=== PATIENT | male | born 1945 | race Caucasian/White ===

== ENCOUNTER 2017-02-06 15:51 | Emergency (ER) | payer OTHER ==
[2017-02-06 15:59] VITALS: TEMP 98.4
--- NOTE | 2017-02-06 16:22 | EDPHY ---
HPI/HX/ROS/PE/MDM Narrative: CHIEF COMPLAINT: Left ankle swelling, shortness of breath. HISTORY OF PRESENT ILLNESS: The patient is a 71-year-old male with a history of hypercholesterolemia and asthma presenting with left ankle swelling and redness that began 5 days ago. He admits associated shortness of breath and fatigue over the same period of time. He now gets short of breath more easily with exertion. The shortness of breath is alleviated by lying down. This feels different than his normal asthma. He has no history of similar symptoms and no blood clot history. He denies calf pain or pain with walking. No fever, chills, chest pain, palpitations, vomiting, diarrhea, urinary complaints, headache, lightheadedness. He did recently take a long driving trip through [place] and [place]. His symptoms began toward the end of the trip. REVIEW OF SYSTEMS: Aside from elements discussed in the HPI, a comprehensive 10-point review of systems was reviewed and is negative. PAST MEDICAL HISTORY: Hypothyroidism, hypercholesterolemia, sleep apnea, depression, asthma. SOCIAL HISTORY: Nonsmoker, lives with his in [facility]. VITAL SIGNS: Reviewed by me GENERAL: Overweight, resting comfortably in no respiratory distress. HEENT: Atraumatic. Eyes: No icterus, no injection. Mouth: moist mucous membranes. No erythema or lesions. Neck: supple with no adenopathy. LUNGS: Clear to auscultation bilaterally, no wheezes, rhonchi or rales. CARDIAC: Regular rate and rhythm, no rubs, murmurs or gallops. ABDOMEN: Soft, nontender, nondistended, bowel sounds normal. BACK: No CVA tenderness. EXTREMITIES: No trauma. No edema. Range of motion is normal throughout. Trace to 1+ edema on left miranda with area of erythema and warmth at the distal miranda. NEURO: Alert and oriented, grossly nonfocal. SKIN: Warm and dry, no rash. PSYCHIATRIC: Normal mentation, no agitation. Portions of this note were transcribed by a medical office professional instructor. I personally performed a history, physical exam, medical decision making, and confirmed accuracy of information the transcribed note. ED Course: 71-year-old male with asthma and hypercholesterolemia presents with left ankle swelling, shortness of breath, and fatigue for the past 5 days. His shortness of breath is exertional in nature and worse than his usual asthma. He has no associated chest pain, fever, or recent sickness. On exam his lungs are clear and heart is regular. Oxygen saturation is 93% on room air. An IV was established and labs ordered. Patient placed on school lunch monitor. EKG and chest x -ray obtained. We will start with a left leg ultrasound. 12-LEAD EKG: Please see the full report in [facility]. My interpretation: Normal sinus rhythm. 1744: Ultrasound results conveyed to me negative by staff radiologist. D-dimer elevated at 1.15. I have ordered a chest CT for the patient. 1839: CTA chest results conveyed to me negative by radiologist. 1914: Reassessed patient. We discussed results of his work up. He and his family report that the sleep apnea machine has accidentally been unplugged from the oxygen source for about 1 week. They believe his generalized fatigue, tiredness, and dyspnea is due to this. They would prefer to follow up with their PCP. Held a long discussion regarding other causes for the patient's dyspnea on exertion including undiagnosed coronary artery disease, congestive failure, valvular problems, pulmonary issues. I offered the patient admission to the hospital for serial troponins, as well as urgent risk stratification. Patient reports he has had a stress test about a year and a half ago. He would prefer to be discharged home on Keflex for her cellulitis and with instructions to uses metered dose inhaler when he develops dyspnea. Family understands that coronary artery disease has not been ruled out 100%. I believe they are appropriate decision makers and I believe they understand the risks and benefit of being discharged. The understand reasons to return to the emergency department and understand the need for close follow-up. I have prescribed Keflex for his cellulitis and Albuterol inhaler. The differential diagnosis for the patient's presenting complaints was considered including but not limited to anemia, pneumonia, coronary artery disease, a arrhythmias, myocardial infarction, pulmonary edema, congestive heart failure, hypertension, and pulmonary embolus. - Data Points Imaging Results: Imaging Impressions Chest X-Ray 02/06/17 16:45 Impression: Perihilar bronchitis without convincing evidence of a new focal infiltrate Extremity Venous Study 02/06/17 16:46 Impression: No evidence of deep vein thrombosis. Findings discussed with Mary Beth Madrid MD 02/06/2017 at 17:39. Chest/Thorax CTA 02/06/17 17:56 Impression: No 1. Pulmonary emboli. 2. Chronic fibrosis, right lower lobe. I telephoned results to Dr. Mary Beth Madrid at 1840 hours. Laboratory Results: Laboratory Results 02/06/17 16:30 02/06/17 16:30 02/06/17 02/06/17 02/06/17 16:30 16:30 16:30 WBC 6.12 10^3/uL 10^3/uL (3.80-9.50) RBC 5.22 10^6/uL 10^6/uL (4.40-6.38) Hgb 15.9 g/dL g/dL (13.7-17.5) Hct 46.3 % % (40.0-51.0) MCV 88.7 fL fL (81.5-99.8) MCH 30.5 pg pg (27.9-34.1) MCHC 34.3 g/dL g/dL (32.4-36.7) RDW 13.5 % % (11.5-15.2) Plt Count 193 10^3/uL 10^3/uL (150-400) MPV 10.4 fL fL (8.7-11.7) Neut % (Auto) 67.2 % % (39.3-74.2) Lymph % (Auto) 22.1 % % (15.0-45.0) [place] % (Auto) 6.5 % % (4.5-13.0) Eos % (Auto) 3.3 % % (0.6-7.6) Baso % (Auto) 0.7 % % (0.3-1.7) Nucleat RBC Rel Count 0.0 % % (0.0-0.2) Absolute Neuts (auto) 4.12 10^3/uL 10^3/uL (1.70-6.50) Absolute Lymphs (auto) 1.35 10^3/uL 10^3/uL (1.00-3.00) Absolute Monos (auto) 0.40 10^3/uL 10^3/uL (0.30-0.80) Absolute Eos (auto) 0.20 10^3/uL 10^3/uL (0.03-0.40) Absolute Basos (auto) 0.04 10^3/uL 10^3/uL (0.02-0.10) Absolute Nucleated RBC 0.00 10^3/uL 10^3/uL (0-0.01) Immature Gran % 0.2 % % (0.0-1.1) Immature Gran # 0.01 10^3/uL 10^3/uL (0.00-0.10) PT 14.0 SEC SEC (12.0-15.0) INR 1.09 (0.83-1.16) D-Dimer 1.15 ug/mLFEU H ug/mLFEU (0.00-0.50) Sodium 138 mEq/L mEq/L (134-144) Potassium 4.5 mEq/L mEq/L (3.5-5.2) Chloride 105 mEq/L mEq/L (97-110) Carbon Dioxide 23 mEq/l mEq/l (22-31) Anion Gap 10 mEq/L mEq/L (8-16) BUN 19 mg/dL mg/dL (7-23) Creatinine 1.1 mg/dL mg/dL (0.7-1.3) Estimated GFR > 60 Glucose 102 mg/dL H mg/dL (70-100) Calcium 9.5 mg/dL mg/dL (8.5-10.4) Troponin I < 0.012 ng/mL ng/mL (0-0.034) NT-Pro-B Natriuret Pep 46 pg/mL pg/mL (0-125) Medications Given: Discontinued Medications Cephalexin (Keflex 500 Mg Prepack#4) 1 btl TAKEHOME EDNOW ONE PRN Reason: Protocol Stop: 02/06/17 19:55 Last Admin: 02/06/17 19:50 Dose: 1 btl General Time Seen by Provider: 02/06/17 16:16 Initial Vital Signs: Initial Vital Signs Temperature (C) 36.9 C 02/06/17 15:54 Heart Rate 106 H 02/06/17 15:54 Respiratory Rate 18 02/06/17 15:54 Blood Pressure 133/82 H 02/06/17 15:54 O2 Sat (%) 95 02/06/17 15:54 O2 Delivery Mode Room Air Allergies/Adverse Reactions: No Known Allergies Allergy (Verified 02/06/17 15:59) Home Medications: Medication Instructions Recorded Aspirin 11/09/10 Levothyroxine 11/09/10 Paxil 11/09/10 SIMVASTATIN 11/09/10 Wellbutrin 11/09/10 Cephalexin [Keflex (RX)] 500 mg PO QID 6 Days 02/06/17 Cephalexin [Keflex] 500 mg PO Q6H #28 cap 02/06/17 Departure - Departure Disposition: [facility] Inpatient Acute Clinical Impression: Exertional dyspnea Cellulitis Qualifiers: Site of cellulitis: extremity Site of cellulitis of extremity: lower extremity Laterality: left Qualified Code(s): L03.116 - Cellulitis of left lower limb Condition: Fair Instructions: Cephalexin (By mouth), Cellulitis (ED), Dyspnea (ED) Additional Instructions: Take Keflex as prescribed. Call your PCP tomorrow to set up a follow up appointment. Use the Albuterol inhaler as instructed when needed for shortness of breath. Return to the ER for any serious worsening of condition. Referrals: Marilin Lozano PA [Primary Care Provider] - As per Instructions Prescriptions: Cephalexin [Keflex (RX)] 500 mg PO QID 6 Days Cephalexin [Keflex] 500 mg PO Q6H #28 cap Report Scribed for: Mary Beth Madrid Report Scribed by: Manuel Soto Date of Report: 02/06/17 Time of Report: 16:35
--- NOTE | 2017-02-06 16:37 | CPEKG ---
Heart Rate: 91 RR Interval: 659 P-R Interval: 152 QRSD Interval: 82 QT Interval: 340 QTC Interval: 419 P [place]: 55 QRS [place]: 37 T Wave [place]: 6 EKG Severity - NORMAL ECG - EKG Impression: SINUS RHYTHM Electronically Signed By: Mary Beth Madrid 06-Feb-2017 21:41:10
[2017-02-06 16:50] LABS: % IMMATURE GRANULYOCYTES 0.2 % (0.0-1.1); ABSOLUTE IMMATURE GRANULOCYTES 0.01 10^3/uL (0.00-0.10); ADD DIFF? NO; ADD MORPH? NO; ADD SCAN? NO; ATYPICAL LYMPHOCYTE FLAG 10 (0-99); FRAGMENT RBC FLAG 0 (0-99); HEMATOCRIT 46.3 % (40.0-51.0); HEMOGLOBIN 15.9 g/dL (13.7-17.5); LEFT SHIFT FLG 0 (0-99); LIPEMIA HEMOLYSIS FLAG 90 (0-99); MEAN CELL HEMOGLOBIN 30.5 pg (27.9-34.1); MEAN CELL HEMOGLOBIN CONCENTR. 34.3 g/dL (32.4-36.7); MEAN CELL VOLUME 88.7 fL (81.5-99.8); MEAN PLATELET VOLUME 10.4 fL (8.7-11.7); PLATELET CLUMPS FLAG 30 (0-99); PLATELET COUNT 193 10^3/uL (150-400); RED BLOOD CELL COUNT 5.22 10^6/uL (4.40-6.38); RED CELL DISTRIBUTION WIDTH 13.5 % (11.5-15.2)
[2017-02-06 16:58] LABS: ANION GAP 10 mEq/L (8-16); CALCIUM 9.5 mg/dL (8.5-10.4); CARBON DIOXIDE 23 mEq/l (22-31); CHLORIDE 105 mEq/L (97-110); CREATININE 1.1 mg/dL (0.7-1.3); GLOMERULAR FILTRATION RATE > 60; GLUCOSE 102 mg/dL (70-100); INR 1.09 (0.83-1.16); POTASSIUM 4.5 mEq/L (3.5-5.2); SODIUM 138 mEq/L (134-144)
[2017-02-06 17:10] LABS: TROPONIN I < 0.012 ng/mL (0-0.034)
[2017-02-06] MEDS ORDERED: IOPAMIDOL (ISOVUE 370) 100 ML BTL IV ONE (18:05)
[2017-02-06 19:07] VITALS: O2SAT 92
[2017-02-06 19:39] VITALS: BP 130/75; PULSE 89; RESP 18
[2017-02-06] MEDS ORDERED: CEPHALEXIN 500MG PREPACK#4 BTL TAKEHOME ONE ×2 (19:51→19:54)
== END 2017-02-06 19:56 | disposition still patient (30) ==
LOC: UNDOADMOB 18:58
DX: R06.09 Other forms of dyspnea (principal); L03.116 Cellulitis of left lower limb; J45.909 Unspecified asthma, uncomplicated; Z79.82 Long term (current) use of aspirin
CPT/HCPCS: 71020; 71275; 93005; 93971; 99285; Q9967

== ENCOUNTER → 2017-07-26 | Outpatient (CLI) | payer OTHER | LOC: FIMAGING 13:34 | PROVIDERS: ATTEND Internal Medicine | DX: M79.661 Pain in right lower leg (principal); R22.41 Localized swelling, mass and lump, right lower limb ==

== ENCOUNTER 2017-10-22 11:25 | Emergency (ER) | payer OTHER ==
--- NOTE | 2017-10-22 13:42 | EDPHY ---
H & P Stated Complaint: URI sxs x 4 days;started Zpack yesterday;also tx'd for pinkeye Source: Patient, Family () Exam Limitations: No limitations - Personal History Current Tetanus Diphtheria and Acellular Pertussis (TDAP): Yes - Medical/Surgical History Hx Asthma: Yes Hx Chronic Respiratory Disease: Yes Hx Diabetes: No Hx Cardiac Disease: Yes Hx Renal Disease: No Hx Cirrhosis: No Hx Alcoholism: No Hx HIV/AIDS: No Hx Splenectomy or Spleen Trauma: No Other PMH: HYPOTHYROID, high chol. VANESSA- oxygen and cpap at night, depression, asthma. - Social History Smoking Status: Never smoked Time Seen by Provider: 10/22/17 13:41 HPI/ROS: HPI: This is a 72-year-old male presents with Chief Complaint: URI sxs x 4 days;started Zpack yesterday;also tx'd for pinkeye Location: Chest Quality: Cough Duration: 4 days Signs and Symptoms:+ low-grade fever, + dyspnea, + no chest pain, + fatigue, + lightheadedness, + bilateral eye redness Timing: Constant Severity: Moderate Context: Patient has a history of VANESSA wear CPAP at night and oxygen, asthma presents with complaints of 4 day history of sinus congestion, fatigue, nonproductive dry hacking cough and bilateral eye redness. He has a close friend that is a physician and prescribed tobramycin dexamethasone ocular drops as well as azithromycin. He is on day 2 azithromycin with no improvement. He denies lower extremity edema/wheezing/neck stiffness/headache/chest pain. reports that he has a history of bronchitis. Does not regularly use inhalers. Denies history of congestive heart failure. No recent long distance travel. Modifying Factors: See above Comment: ROS: see HPI Constitutional: No fever, no chills, no weight loss Eyes: No blurred vision Respiratory: No shortness of breath, no cough Cardiovascular: No chest pain Gastrointestinal: No nausea, no vomiting, no diarrhea Genitourinary: No dysuria Extremities: No myalgias Neurologic: No weakness, no numbness Skin: No rashes Hematologic: No bruising, no bleeding MEDICAL/SURGICAL/SOCIAL HISTORY: Medical history: HYPOTHYROID, high chol. VANESSA- oxygen and cpap at night, depression, asthma. Surgical history: Denies Social history: . CONSTITUTIONAL: Overweight elderly white male, awake and alert, no obvious distress HEENT: Atraumatic and normocephalic, PERRL, EOMI. Tympanic membranes clear. Oropharynx clear, no exudate and moist pink mucosa. Airway patent. No lymphadenopathy. No meningismus. No JVD. Cardiovascular: Normal S1/S2, regular rate, regular rhythm, without murmur rub or gallop. PULMONARY/CHEST: Symmetrical and nontender. Clear to auscultation bilaterally. Good air movement. No accessory muscle usage. ABDOMEN: Soft, nondistended, nontender, no rebound, no guarding, no peritoneal signs, no masses or organomegaly. No CVAT. EXTREMITIES: 2/2 pulses, strength 5/5, no deformities, no clubbing, no cyanosis or edema. NEUROLOGICAL: no focal neuro deficits. GCS 15. SKIN: Warm and dry, no erythema. no rash. Good capillary refill. (Jody Russo) Constitutional: Initial Vital Signs Temperature (C) 37.2 C 10/22/17 11:35 Heart Rate 100 10/22/17 11:35 Respiratory Rate 18 10/22/17 11:35 Blood Pressure 142/80 H 10/22/17 11:35 O2 Sat (%) 93 10/22/17 11:35 O2 Delivery Mode Room Air Allergies/Adverse Reactions: No Known Allergies Allergy (Verified 10/22/17 11:41) Home Medications: Medication Instructions Recorded Aspirin 11/09/10 Levothyroxine 11/09/10 Paxil 11/09/10 SIMVASTATIN 11/09/10 Wellbutrin 11/09/10 Benzonatate [Tessalon Pearles (RX)] 100 mg PO Q6 PRN #15 cap 10/22/17 Zpack 10/22/17 predniSONE 50 mg PO DAILY #5 tablet 10/22/17 Medical Decision Making - Diagnostics EKG Interpretation: 12 lead EKG: Indication: Dyspnea Rhythm: Normal sinus rhythm, rate 80 beats per minute [place]: Normal Intervals: Normal QRS: Normal ST segments: Nonspecific changes T-waves: Nonspecific changes INTERPRETATION: No acute ischemic changes The 12 lead EKG was interpreted by myself and with attending. (Jody Russo) ED Course/Re-evaluation: Labs, blood culture, chest x-ray, EKG, IV and oral medications ordered O2 saturation 97-99% on room air upon arrival. Given ibuprofen and Tessalon Perles Chest x-ray my read shows no focal opacity, effusion, pneumothorax, widened mediastinum. Radiology questions mild CHF. 1445: D-dimer elevated; CTA chest ordered No signs of pulmonary embolism/pneumonia/pneumothorax/pleural effusion/ arrhythmia/coronary syndrome/congestive heart failure Given p.o. prednisone 60 mg Appears to be viral bronchitis will have patient continue Zithromax until course descended Reassessed patient who notes improvement in cough This patient was seen under the supervision of my secondary supervising physician. I evaluated care for this patient independently. Discussed this patient with Dr. Madrid who did not see the patient. (Jody Russo) Differential Diagnosis: Shortness of breath including but not limited to pulmonary infectious process, COPD, asthma, pulmonary embolus and congestive heart failure. (Jody Russo) Other Provider: The patient was evaluated and managed by the Physician Logistics Associate. I discussed the patient's presentation and course with the midlevel provider with them and agree with the evaluation. My co-signature indicates that I have reviewed this chart and I agree with the findings and plan of care as documented. I am the secondary supervising physician. 72-year-old male presenting with 4 days of cough and shortness of breath. Evaluation the emergency department included chest x-ray showing no focal infiltrate, CT scan of the chest revealing no pulmonary embolism, EKG which was normal sinus rhythm, troponin which was negative BMP which was negative. Patient 's vital signs were stable with no hypoxemia or tachypnea. Patient advised to continue azithromycin. Provided with cough suppressant as well. Close follow-up recommended. Push fluids. (Mary Beth Madrid) - Data Points Laboratory Results: Laboratory Results 10/22/17 14:00 10/22/17 14:00 Medications Given: Discontinued Medications Benzonatate (Tessalon Pearles) 200 mg PO EDNOW ONE Stop: 10/22/17 13:47 Last Admin: 10/22/17 14:02 Dose: 200 mg Ibuprofen (Motrin) 600 mg PO EDNOW ONE Stop: 10/22/17 13:47 Last Admin: 10/22/17 14:02 Dose: 600 mg Prednisone (Prednisone) 60 mg PO EDNOW ONE Stop: 10/22/17 16:02 Last Admin: 10/22/17 16:14 Dose: 60 mg Departure - Departure Disposition: Home, Routine, Self-Care Clinical Impression: Bronchitis Condition: Good Instructions: Acute Bronchitis (ED) Additional Instructions: Please complete azithromycin and eyedrops per primary care provider. Start prednisone course and use Tessalon Perles as needed for cough. Referrals: Zahra Santana MD [Primary Care Provider] - As per Instructions Prescriptions: Benzonatate [Tessalon Pearles (RX)] 100 mg PO Q6 PRN #15 cap PRN Reason: Cough, Severe predniSONE 50 mg PO DAILY #5 tablet
[2017-10-22] MEDS ORDERED: BENZONATATE 100 MG CAP PO ONE (13:46)
[2017-10-22] MEDS ORDERED: IBUPROFEN 600 MG TAB PO ONE (13:46)
--- NOTE | 2017-10-22 14:07 | CPEKG ---
Heart Rate: 80 RR Interval: 750 P-R Interval: 148 QRSD Interval: 80 QT Interval: 352 QTC Interval: 406 P [place]: 66 QRS [place]: 22 T Wave [place]: 23 EKG Severity - NORMAL ECG - EKG Impression: SINUS RHYTHM Electronically Signed By: Zaida Rudolph 22-Oct-2017 21:20:58
[2017-10-22 14:27] LABS: PLATELET COUNT 215 10^3/uL (150-400)
[2017-10-22 15:25] VITALS: RESP 16
[2017-10-22] MEDS ORDERED: predniSONE 20 MG TAB PO ONE (16:01)
[2017-10-22 16:41] VITALS: BP 127/62; PULSE 90; TEMP 99.3; O2SAT 92
== END 2017-10-22 16:38 | disposition home or self-care (01) ==
DX: J40 Bronchitis, not specified as acute or chronic (principal); J45.909 Unspecified asthma, uncomplicated; Z79.899 Other long term (current) drug therapy

== ENCOUNTER 2018-07-30 21:56 | Emergency (ER) | payer OTHER ==
[2018-07-30] MEDS ORDERED: NS 1,000 ML IV ONE (22:05)
--- NOTE | 2018-07-30 22:06 | EDPHY ---
H & P Stated Complaint: UTI symptoms, fever, chills Time Seen by Provider: 07/30/18 22:05 HPI/ROS: HPI CHIEF COMPLAINT: Possible urinary tract infection HISTORY OF PRESENT ILLNESS: 73-year-old male, history of urinary tract infection, presents emergency room stating he is not feeling well this evening. And that he had rigors. States this evening he started feeling ill like he had a flu-like illness. And then developed shakes and rigors. Denies any chest pain or shortness of breath, denies productive cough. Denies abdominal pain. T-max at home was 99. Does state he had some discomfort urinating. He recently saw Urology Dr. Alfred, and had a cystoscopy performed last Monday. He denies flank pain or back pain. Denies abdominal pain. Denies vomiting. The cystoscopy was performed very evaluation of urinary tract infection. Past Medical History: Past medical history significant for depression, anxiety , obstructive sleep apnea on nighttime oxygen Past Surgical History: Cystoscopy last Monday. Social History: Denies drugs alcohol tobacco. Family History: Resides locally. ROS REVIEW OF SYSTEMS: 10 Systems were reviewed and negative with the exception of the elements mentioned in the history of present illness. Exam Constitutional nontoxic triage nursing summary reviewed, vital signs reviewed, awake/alert. Vital signs stable at triage. Noted T-max 37.9 degrees. Eyes normal conjunctivae and sclera, EOMI, PERRLA. HENT normal inspection, atraumatic, moist mucus membranes, no epistaxis, neck supple/ no meningismus, no raccoon eyes. Respiratory clear to auscultation bilaterally, normal breath sounds, no respiratory distress, no wheezing. Cardiovascular rate normal, regular rhythm, no murmur, no edema, distal pulses normal. Gastrointestinal soft, non-tender, no rebound, no guarding, normal bowel sounds, no distension, no pulsatile mass. Genitourinary no CVA tenderness. Musculoskeletal no midline vertebral tenderness, full range of motion, no calf swelling, no tenderness of extremities, no meningismus, good pulses, neurovascularly intact. Skin pink, warm, & dry, no rash, skin atraumatic. Neurologic awake, alert and oriented x 3, AAOx3, moves all 4 extremities equally, motor intact, sensory intact, CN II-XII intact, normal cerebellar, normal vision, normal speech. Psychiatric normal mood/affect. Heme/Lymph/Immune no lymphadenopathy. Differential Diagnosis: Includes but is not limited to in a particular order, UTI, cystitis, pyelonephritis, prostatitis, sepsis, bacteremia Medical Decision Making: Plan for this patient IV establishment with fluid bolus 1 L normal saline, check basic blood work CBC, lactic acid, blood cultures , urinalysis. Re-evaluate. Re-evaluation: 1237: Patient re-evaluated this time. Vital signs are stable. Patient is afebrile here. Blood work is reassuring with no elevated white blood cell count. He has not had a fever here. He is feeling better after IV fluids. I have sent urine culture and blood cultures. Patient's urinalysis does show small amount of urinary tract infection. Given his recent instrumentation I did provide him 1 g Rocephin here in emergency room Patient be given Keflex for home. I recommend he drinks lots of fluids stays well hydrated. Additionally should return emergency room if develops worsening abdominal pain, fever, vomiting. Complete antibiotic course. Return if worse. The patient is eager to be discharged home. at bedside as well. Source: Patient - Personal History Current Tetanus/Diphtheria Vaccine: Unsure - Medical/Surgical History Hx Asthma: Yes Hx Chronic Respiratory Disease: Yes Hx Diabetes: No Hx Cardiac Disease: Yes Hx Renal Disease: No Hx Cirrhosis: No Hx Alcoholism: No Hx HIV/AIDS: No Hx Splenectomy or Spleen Trauma: No Other PMH: HYPOTHYROID, high chol. VANESSA- oxygen and cpap at night, depression, asthma. - Social History Smoking Status: Never smoked Constitutional: Initial Vital Signs Temperature (C) 37.9 C 07/30/18 21:59 Heart Rate 95 07/30/18 21:59 Respiratory Rate 16 07/30/18 21:59 Blood Pressure 132/82 H 07/30/18 21:59 O2 Sat (%) 96 07/30/18 21:59 O2 Delivery Mode Room Air Allergies/Adverse Reactions: No Known Allergies Allergy (Verified 07/30/18 22:02) Home Medications: Medication Instructions Recorded Aspirin 11/09/10 Levothyroxine 11/09/10 Paxil 11/09/10 SIMVASTATIN 11/09/10 Wellbutrin 11/09/10 Cephalexin [Keflex] 500 mg PO Q6H #28 cap 07/30/18 Medical Decision Making - Data Points Laboratory Results: Laboratory Results 07/30/18 22:15 07/30/18 22:15 07/30/18 07/30/18 07/30/18 23:00 22:15 22:15 WBC 8.20 10^3/uL 10^3/uL (3.80-9.50) RBC 5.09 10^6/uL 10^6/uL (4.40-6.38) Hgb 15.7 g/dL g/dL (13.7-17.5) Hct 45.6 % % (40.0-51.0) MCV 89.6 fL fL (81.5-99.8) MCH 30.8 pg pg (27.9-34.1) MCHC 34.4 g/dL g/dL (32.4-36.7) RDW 13.5 % % (11.5-15.2) Plt Count 173 10^3/uL 10^3/uL (150-400) MPV 10.2 fL fL (8.7-11.7) Neut % (Auto) 82.3 % H % (39.3-74.2) Lymph % (Auto) 9.9 % L % (15.0-45.0) [place] % (Auto) 5.9 % % (4.5-13.0) Eos % (Auto) 1.3 % % (0.6-7.6) Baso % (Auto) 0.4 % % (0.3-1.7) Nucleat RBC Rel Count 0.0 % % (0.0-0.2) Absolute Neuts (auto) 6.75 10^3/uL H 10^3/uL (1.70-6.50) Absolute Lymphs (auto) 0.81 10^3/uL L 10^3/uL (1.00-3.00) Absolute Monos (auto) 0.48 10^3/uL 10^3/uL (0.30-0.80) Absolute Eos (auto) 0.11 10^3/uL 10^3/uL (0.03-0.40) Absolute Basos (auto) 0.03 10^3/uL 10^3/uL (0.02-0.10) Absolute Nucleated RBC 0.00 10^3/uL 10^3/uL (0-0.01) Immature Gran % 0.2 % % (0.0-1.1) Immature Gran # 0.02 10^3/uL 10^3/uL (0.00-0.10) VBG Lactic Acid Sodium 136 mEq/L mEq/L (135-145) Potassium 4.4 mEq/L mEq/L (3.3-5.0) Chloride 101 mEq/L mEq/L (97-110) Carbon Dioxide 27 mEq/l mEq/l (22-31) Anion Gap 8 mEq/L mEq/L (8-16) BUN 21 mg/dL mg/dL (7-23) Creatinine 1.1 mg/dL mg/dL (0.7-1.3) Estimated GFR > 60 Glucose 96 mg/dL mg/dL (70-100) Calcium 9.0 mg/dL mg/dL (8.5-10.4) Urine Color YELLOW Urine Appearance CLEAR Urine pH 5.0 (5.0-7.5) Ur Specific [place] 1.016 (1.002-1.030) Urine Protein NEGATIVE (NEGATIVE) Urine Ketones NEGATIVE (NEGATIVE) Urine Blood 1+ H (NEGATIVE) Urine Nitrate NEGATIVE (NEGATIVE) Urine Bilirubin NEGATIVE (NEGATIVE) Urine Urobilinogen NEGATIVE EU EU (0.2-1.0) Ur Leukocyte Esterase TRACE H (NEGATIVE) Urine RBC 5-10 /hpf H /hpf (0-3) Urine WBC 1-3 /hpf /hpf (0-3) Ur Epithelial Cells NONE SEEN /lpf /lpf (NONE-1+) Urine Mucus TRACE /lpf /lpf (NONE-1+) Urine Glucose NEGATIVE (NEGATIVE) 07/30/18 22:15 WBC RBC Hgb Hct MCV MCH MCHC RDW Plt Count MPV Neut % (Auto) Lymph % (Auto) [place] % (Auto) Eos % (Auto) Baso % (Auto) Nucleat RBC Rel Count Absolute Neuts (auto) Absolute Lymphs (auto) Absolute Monos (auto) Absolute Eos (auto) Absolute Basos (auto) Absolute Nucleated RBC Immature Gran % Immature Gran # VBG Lactic Acid 1.8 mmol/L mmol/L (0.7-2.1) Sodium Potassium Chloride Carbon Dioxide Anion Gap BUN Creatinine Estimated GFR Glucose Calcium Urine Color Urine Appearance Urine pH Ur Specific [place] Urine Protein Urine Ketones Urine Blood Urine Nitrate Urine Bilirubin Urine Urobilinogen Ur Leukocyte Esterase Urine RBC Urine WBC Ur Epithelial Cells Urine Mucus Urine Glucose Medications Given: Discontinued Medications Acetaminophen (Tylenol) 1,000 mg PO EDNOW ONE Stop: 07/30/18 23:18 Last Admin: 07/30/18 23:18 Dose: 1,000 mg Sodium Chloride (Ns) 1,000 mls @ 0 mls/hr IV EDNOW ONE; Wide Open PRN Reason: Protocol Stop: 07/30/18 22:06 Last Admin: 07/30/18 22:12 Dose: 1,000 mls Ceftriaxone Sodium/Dextrose (Rocephin 1 Gm (Premix)) 50 mls @ 100 mls/hr IV EDNOW ONE PRN Reason: Protocol Stop: 07/30/18 23:50 Last Admin: 07/30/18 23:40 Dose: 50 mls Departure - Departure Disposition: Home, Routine, Self-Care Clinical Impression: Urinary tract infection Qualifiers: Urinary tract infection type: acute cystitis Hematuria presence: with hematuria Qualified Code(s): N30.01 - Acute cystitis with hematuria Condition: Good Instructions: Urinary Tract Infection in Men (ED) Additional Instructions: 1. Drink lots of fluids stay well-hydrated 2. Antibiotics as prescribed 3. Return if worsening fever, vomiting, not feeling well. Referrals: Zahra Santana MD [Primary Care Provider] - As per Instructions Alex Alfred MD [Medical Doctor] - As per Instructions Prescriptions: Cephalexin [Keflex] 500 mg PO Q6H #28 cap
[2018-07-30 22:36] LABS: PLATELET COUNT 173 10^3/uL (150-400)
[2018-07-30] MEDS ORDERED: ACETAMINOPHEN 500 MG TAB ONE (23:15)
[2018-07-30] MEDS ORDERED: ACETAMINOPHEN 500 MG TAB PO ONE (23:17)
[2018-07-30 23:44] VITALS: BP 159/88
[2018-07-31] MEDS ORDERED: KETOROLAC 15 MG/1 ML SDV IVP ONE (00:34)
== END 2018-07-31 00:53 | disposition home or self-care (01) ==
DX: N39.0 Urinary tract infection, site not specified (principal); E86.9 Volume depletion, unspecified
CPT/HCPCS: 96361; 96365; 96375; 99284; J0696; J1885

== ENCOUNTER → 2018-08-03 | Outpatient (CLI) | payer OTHER | LOC: FIMAGING 10:30 | PROVIDERS: ATTEND Specialist | DX: N20.0 Calculus of kidney (principal); N28.1 Cyst of kidney, acquired; N42.89 Other specified disorders of prostate; N32.3 Diverticulum of bladder ==

== ENCOUNTER → 2018-09-13 | Outpatient (CLI) | payer OTHER | LOC: FIMAGING 12:09 | PROVIDERS: ATTEND Internal Medicine Pulmonary Disease | DX: J44.9 Chronic obstructive pulmonary disease, unspecified (principal) ==

== ENCOUNTER → 2018-10-22 | Outpatient (CLI) | payer OTHER | LOC: BHFA 10:00 | PROVIDERS: ATTEND Internal Medicine Cardiovascular Disease | DX: R06.00 Dyspnea, unspecified (principal) ==

== ENCOUNTER 2019-02-03 09:57 | Emergency (ER) | payer OTHER ==
--- NOTE | 2019-02-03 10:10 | EDPHY ---
HPI/HX/ROS/PE/MDM Narrative: CHIEF COMPLAINT: Cough and cold symptoms, fatigue HPI: This patient is a 73-year-old male with history of asthma, obstructive sleep apnea, hyperlipidemia, and hypothyroidism. He presents complaining of cough and cold symptoms, stating "every year I get a bad could that goes down into my lungs and this feels like that". His current symptoms have been ongoing for two weeks. He complains of difficulty breathing and persistent cough that is making it hard for him to sleep. He notes has developed conjunctivitis symptoms in the last day as well. He does not feel febrile and has not taken his temperature. He endorses productive cough with yellow sputum. He did receive a flu shot this year. He denies any cardiac history. He denies any chest pain, vomiting, diarrhea, or other associated symptoms. No new swelling. REVIEW OF SYSTEMS: A comprehensive 10 system review of systems is otherwise negative aside from elements mentioned in the history of present illness and medical decision making. PMH: Asthma. Hypothyroid. Hyperlipidemia. VANESSA, uses CPAP at night. SOCIAL HISTORY: PHYSICAL EXAM: General:Patient is alert, in no acute distress. ENT:Bilateral conjunctivitis with mild yellow discharge noted. ENT inspection otherwise normal. Neck: Normal inspection. Full range of motion. Respiratory:No respiratory distress. Breath sounds normal bilaterally. Cardiovascular: Regular rate and rhythm. Strong peripheral pulses. Normal cap refill. Abdomen:The abdomen is nontender to palpation. There are no peritoneal signs. There are normal bowel sounds. Back: Normal to inspection. No tenderness to palpation. Skin: Normal color. No rash. Warm and dry. Extremities: Normal appearance. Full range of motion. Neuro: Oriented x3. Normal motor function. Normal sensory function. ED Course: 73-year-old male with history including asthma, obstructive sleep apnea, hyperlipidemia, and hypothyroidism who presents complaining of cough and cold symptoms ongoing for two weeks. He additionally has bilateral conjunctivitis. Plan for EKG, chest x-ray, labs including CBC, chemistries, POC troponin, flu swab. EKG was ordered and interpreted by myself. Please see [employer] system for official reading. Reviewed chest x-ray. This is consistent with COPD. No focal pneumonia. Reviewed laboratory studies. These are largely unremarkable. Flu A/B and RSV negative. Reassessed patient. Discussed imaging and laboratory studies. He has passed a road test at 92% SpO2 on room air. Patient is feeling better and would like to go home. Plan to discharge home in good condition. He understands to follow up with his primary care provider tomorrow without fail. Prescriptions for azithromycin, ofloxacin, prednisone, albuterol HFA, and Tessalon pearles provided for symptom relief. Follow up and return precautions discussed. The patient is comfortable with this plan. MDM: This patient presents with what appears to be a COPD exacerbation. Workup is negative for signs of PNA, hypoxemia, sepsis, ACS. There are no symptoms to suggest PE. We discussed options for care including admission to the hospital for observation, and he would like to go home. I will treat him with azithromycin and steroid burst. I note an outpatient lab ordered by his PCP which indicates his thyroid supplementation is likely too low. The patient will follow-up with his PCP tomorrow to address this. I see no signs of hypothyroid emergency at this time, and I do not think his current symptoms are related to this. His bilateral conjunctivitis certainly suggests a viral process. - Data Points Imaging Results: Imaging Impressions Chest X-Ray 02/03/19 10:18 Impression: 1. Mild cardiac silhouette enlargement. 2. Peribronchial thickening, with no focal infiltrate. 3. Small nodular opacity at the right lung base, not appreciated on previous CT imaging of the chest in 2017 (although there was some parenchymal fibrosis and/ or subsegmental atelectasis at that time). A repeat study with nipple markers is suggested. Findings were discussed with Nimesh Rosenthal MD at 11:31, on 02/03/2019. Chest X-Ray 02/03/19 11:33 Impression: The nodule at the right lung base corresponds to the patient's nipple. Imaging: I viewed and interpreted images myself Laboratory Results: Laboratory Results 02/03/19 10:30 02/03/19 10:30 02/03/19 02/03/19 02/03/19 10:30 10:30 10:30 WBC 8.12 10^3/uL 10^3/uL (3.80-9.50) RBC 5.23 10^6/uL 10^6/uL (4.40-6.38) Hgb 16.0 g/dL g/dL (13.7-17.5) Hct 46.6 % % (40.0-51.0) MCV 89.1 fL fL (81.5-99.8) MCH 30.6 pg pg (27.9-34.1) MCHC 34.3 g/dL g/dL (32.4-36.7) RDW 13.8 % % (11.5-15.2) Plt Count 208 10^3/uL 10^3/uL (150-400) MPV 10.1 fL fL (8.7-11.7) Neut % (Auto) 76.2 % H % (39.3-74.2) Lymph % (Auto) 12.3 % L % (15.0-45.0) [place] % (Auto) 8.9 % % (4.5-13.0) Eos % (Auto) 1.8 % % (0.6-7.6) Baso % (Auto) 0.6 % % (0.3-1.7) Nucleat RBC Rel Count 0.0 % % (0.0-0.2) Absolute Neuts (auto) 6.18 10^3/uL 10^3/uL (1.70-6.50) Absolute Lymphs (auto) 1.00 10^3/uL 10^3/uL (1.00-3.00) Absolute Monos (auto) 0.72 10^3/uL 10^3/uL (0.30-0.80) Absolute Eos (auto) 0.15 10^3/uL 10^3/uL (0.03-0.40) Absolute Basos (auto) 0.05 10^3/uL 10^3/uL (0.02-0.10) Absolute Nucleated RBC 0.00 10^3/uL 10^3/uL (0-0.01) Immature Gran % 0.2 % % (0.0-1.1) Immature Gran # 0.02 10^3/uL 10^3/uL (0.00-0.10) Sodium 138 mEq/L mEq/L (135-145) Potassium 4.7 mEq/L mEq/L (3.5-5.2) Chloride 103 mEq/L mEq/L (97-110) Carbon Dioxide 23 mEq/l mEq/l (22-31) Anion Gap 12 mEq/L mEq/L (6-14) BUN 20 mg/dL mg/dL (7-23) Creatinine 1.2 mg/dL mg/dL (0.7-1.3) Estimated GFR 59 Glucose 106 mg/dL H mg/dL (70-100) Calcium 9.4 mg/dL mg/dL (8.5-10.4) POC Troponin I 0.01 ng/mL ng/mL (0.00-0.08) Nasal Influenza A PCR Nasal Influenza B PCR RSV (PCR) 02/03/19 10:10 WBC RBC Hgb Hct MCV MCH MCHC RDW Plt Count MPV Neut % (Auto) Lymph % (Auto) [place] % (Auto) Eos % (Auto) Baso % (Auto) Nucleat RBC Rel Count Absolute Neuts (auto) Absolute Lymphs (auto) Absolute Monos (auto) Absolute Eos (auto) Absolute Basos (auto) Absolute Nucleated RBC Immature Gran % Immature Gran # Sodium Potassium Chloride Carbon Dioxide Anion Gap BUN Creatinine Estimated GFR Glucose Calcium POC Troponin I Nasal Influenza A PCR NEGATIVE FOR FLU A (NEGATIVE) Nasal Influenza B PCR NEGATIVE FOR FLU B (NEGATIVE) RSV (PCR) NEGATIVE FOR RSV (NEGATIVE) Medications Given: Discontinued Medications Sodium Chloride (Ns) 500 mls @ 0 mls/hr IV EDNOW ONE; Wide Open PRN Reason: Protocol Stop: 02/03/19 10:19 Last Admin: 02/03/19 10:29 Dose: 500 mls Point of Care Test Results: Chemistry 02/03/19 10:30 POC Troponin I 0.01 ng/mL ng/mL (0.00-0.08) General Time Seen by Provider: 02/03/19 10:02 Initial Vital Signs: Initial Vital Signs Temperature (C) 37.3 C 02/03/19 10:02 Heart Rate 92 02/03/19 10:02 Respiratory Rate 18 02/03/19 10:02 Blood Pressure 108/74 02/03/19 10:02 O2 Sat (%) 94 02/03/19 10:02 O2 Delivery Mode Room Air O2 (L/minute) 2 Allergies/Adverse Reactions: No Known Allergies Allergy (Verified 02/03/19 10:01) Home Medications: Medication Instructions Recorded Aspirin 11/09/10 Levothyroxine 11/09/10 Paxil 11/09/10 SIMVASTATIN 11/09/10 Wellbutrin 11/09/10 Albuterol [Proventil Inhaler HFA 1 - 2 puffs IH Q4PRN PRN #1 mdi 02/03/19 (*)] Azithromycin [Zithromax] 250 mg PO DAILY #6 tab 02/03/19 Benzonatate [Tessalon Pearles (RX)] 100 mg PO TID PRN #15 cap 02/03/19 Brio Ellipta 02/03/19 Ofloxacin 0.3% [Ocuflox 0.3%] 1 drops OP QID 7 Days opht.btl 02/03/19 predniSONE 60 mg PO DAILY 5 Days tab 02/03/19 Departure - Departure Disposition: Home, Routine, Self-Care Clinical Impression: Chronic obstructive pulmonary disease with acute exacerbation, Bilateral conjunctivitis Condition: Good Instructions: Azithromycin (By mouth), Ofloxacin (Into the eye), COPD (Chronic Obstructive Pulmonary Disease) (ED), Conjunctivitis (ED) Additional Instructions: Follow up with your primary care provider tomorrow without fail. Take azithromycin as prescribed. Take Prednisone as prescribed. Use Ofloxacin eye drops as prescribed. Use albuterol inhaler as prescribed as needed for difficulty breathing. Take Tessalon Pearles as prescribed as needed for cough. Return to the Emergency Department for fever, chest pain, shortness of breath, increasing pain or other worsening of condition. Referrals: Zahra Santana MD [Primary Care Provider] - As per Instructions Prescriptions: Albuterol [Proventil Inhaler HFA (*)] 1 - 2 puffs IH Q4PRN PRN #1 mdi PRN Reason: Sob/Dyspnea Azithromycin [Zithromax] 250 mg PO DAILY #6 tab Benzonatate [Tessalon Pearles (RX)] 100 mg PO TID PRN #15 cap PRN Reason: Cough, Severe Ofloxacin 0.3% [Ocuflox 0.3%] 1 drops OP QID 7 Days opht.btl predniSONE 60 mg PO DAILY 5 Days tab Report Scribed for: Nimesh Rosenthal Report Scribed by: Rosa Cruz Date of Report: 02/03/19 Time of Report: 10:10 Physician Review and Approval Statement: Portions of this note were transcribed by an ED scribe. I personally performed the history, physical exam, and medical decision making; and confirm the accuracy of the information in the transcribed note.
[2019-02-03] MEDS ORDERED: NS 500 ML IV ONE (10:18)
[2019-02-03 10:44] LABS: PLATELET COUNT 208 10^3/uL (150-400)
--- NOTE | 2019-02-03 11:46 | CPEKG ---
Test Reason : OPEN Blood Pressure : / mmHG Vent. Rate : 082 BPM Atrial Rate : 082 BPM P-R Int : 148 ms QRS Dur : 078 ms QT Int : 351 ms P-R-T Axes : 035 021 026 degrees QTc Int : 410 ms Sinus rhythm Confirmed by Nimesh Rosenthal ([id number]) on 02/03/2019 11:46:07 AM Referred By: Nimesh Rosenthal Confirmed By:Nimesh Rosenthal
[2019-02-03 13:24] VITALS: BP 112/72
== END 2019-02-03 13:23 | disposition home or self-care (01) ==
DX: J44.1 Chronic obstructive pulmonary disease with (acute) exacerbation (principal); H10.9 Unspecified conjunctivitis; E86.9 Volume depletion, unspecified; J45.909 Unspecified asthma, uncomplicated
CPT/HCPCS: 84484-ER